=== PATIENT | male | born 1975 | race Caucasian/White ===

== ENCOUNTER 2019-10-13 11:24 | Emergency (ER) | payer BC, SELFPAY ==
--- NOTE | ~2019-10-13 | XR_ITS ---
EXAMINATION: XR wrist LT min 3V DATE: 10/13/2019 11:41 INDICATION: Sudden onset left wrist pain TECHNIQUE: Three views of the left wrist were obtained. COMPARISON: 03/16/2019 FINDINGS: There is mild osteoarthritis at the triscaphe joint. No fracture, dislocation, or subluxati on is identified. Bone alignment is normal. There is mild soft tissue swelling overlying the metacarp als. IMPRESSION: 1. Wrist soft tissue swelling without underlying acute osseous abnormality identified. Reviewed, dictated and finalized at location A. IMPRESSION: 1. Wrist soft tissue swelling without underlying acute osseous abnormality iden tified.
--- NOTE | 2019-10-13 11:33 | ED.EXTPRO ---
HPI - Extremity Problem General Chief complaint: Extremity Problem,Nontraumatic Stated complaint: left wrist injury Time Seen by Provider: 10/13/19 11:33 Source: patient Mode of arrival: ambulatory Limitations: no limitations History of Present Illness HPI Narrative: patient presents with let wrist pain that radiates to the base of his left thumb. Patient states he had an injury at work 7 months ago and had a negative xray of his thumb/wrist. patient reports increased pain and swelling while he was mowing the grass yesterday. patient reports a history of gout. no open areas, no numbness or tingling. some swelling and tenderness to area.PATIENT REPORTS CHRONIC PAIN TO THE AREA, BUT NEVER THIS BAD. RATES PAIN 11/30 PATIENT STATES HE TOOK IBUPROFEN 600 MG THIS AM BUT WAS NAUSEATED AND HAD EMESIS WITH PILL INTACT IN EMESIS. PATIENT REQUESTS SHOT FOR PAIN AND DISCOMFORT. MD Complaint: extremity pain and extremity swelling Location: left and upper extremity Severity scale (1-10): 3 Quality: aching Radiation: none Relieving factors: immobilization Associated symptoms: denies other symptoms Related Data Allergies Allergy/AdvReac Type Severity Reaction Status Date / Time No Known Allergies Allergy Verified 10/13/19 11:30 Review of Systems Review of Systems: Narrative: CONSTITUTIONAL: Denies fever, chills, or sweats. EYES: Denies visual changes, redness, or discharge. ENT: Denies rhinorrhea, congestion, sore throat, or otalgia. CARDIOVASCULAR: Denies chest pain, palpitations, or edema. RESPIRATORY: Denies cough or dyspnea. GASTROINTESTINAL: Denies abdominal pain, nausea, vomiting, or diarrhea. GENITOURINARY: Denies dysuria or hematuria. SKIN: Denies rash or itching. MUSCULOSKELETAL: Denies back pain, joint pain, or myalgia.left wrist pain NEUROLOGIC: Denies headache, numbness, or weakness. PSYCHIATRIC: Denies anxiety or depression. PMFSH Social History Social History Gender identity (if verbalized by the patient): Male Comments At time of signature, agree with nursing past medical, surgical, social and family history. There is no relevant family history pertinent to the presenting complaint Exam Narrative: Exam Narrative: GENERAL: Well-appearing, well-nourished, and in no acute distress. HEAD: Normocephalic, atraumatic. EYES: PERRLA and EOMI. ENT: Nares clear, no rhinorrhea or epistaxis. Mucous membranes moist. NECK: Supple. CHEST: Clear to auscultation. No respiratory distress. HEART: Regular rate and rhythm. No murmur heard. Normal peripheral pulses. ABDOMEN: Soft, nontender, nondistended, normal active bowel sounds. EXTREMITIES: Normal range of motion. No edema.HAND EXAM - Skin intact, no laceration, slight swelling, no erythema, normal digit cascade with flexion of fingers, median nerve, ulnar nerve, radial nerve is intact. Normal sensation of each side of each finger, can perform `ok? sign, `cross over finger test of index and middle fingers? and `thumbs up? sign, normal thumb opposition, no scissoring. good capillary refill and radial pulse. normal flexion and extension of fingers and wrist. normal supination at wrist. Normal forearm and elbow exam. pain to lateral side of wrist with movement SKIN: Warm, dry, no rash. NEURO: No focal deficits. Alert and oriented x3. [place] Coma Scale Eye Opening: Spontaneous 4 [place] Coma Scale Motor: Obeys Commands 6 Shawna Coma Scale Verbal: Oriented 5 [place] Coma Scale Total 15 Course Vital Signs Vital signs: Vital Signs Temperature 37.5 C 10/13/19 11:45 Pulse Rate 81 10/13/19 11:45 Respiratory Rate 10/13/19 11:45 Blood Pressure 147/99 H 10/13/19 11:45 Pulse Oximetry 97 10/13/19 11:45 Temperature 37.5 C 10/13/19 11:45 Pulse Rate 81 10/13/19 11:45 Respiratory Rate 20 10/13/19 11:45 Blood Pressure 147/99 H 10/13/19 11:45 Pulse Oximetry 97 10/13/19 11:45 Please JAMEE schedule a f
[2019-10-13 11:45] VITALS: BP 147/99; PULSE 81; RESP 20; TEMP 37.5; O2SAT 97
[2019-10-13] MEDS: KETOROLAC (*BKC) 60 MG/2 ML VIAL IM (12:02)
== END 2019-10-13 12:26 | disposition home or self-care (01) ==
PROVIDERS: Emergency Provider Nurse Practitioner Family; PCP Family Medicine Sports Medicine
DX: M19.032 Primary osteoarthritis, left wrist (principal); M10.9 Gout, unspecified
CPT/HCPCS: 73110; 96372; 99213; G0463; J1885

== ENCOUNTER 2022-01-07 11:05 | Emergency (ER) | payer OTHER, SELFPAY ==
--- NOTE | ~2022-01-07 | XR_ITS ---
EXAMINATION: XR wrist RT min 3V DATE: 01/07/2022 11:31 INDICATION: Right thumb and wrist pain. Fall. TECHNIQUE: 3 views of right wrist were obtained. COMPARISON: None. FINDINGS: Bone alignment is normal. No acute fracture. There is old healed fracture of neck of fifth metacarpal. There is mild osteoarthritis of triscaphe joint and first carpometacarpal joint. IMPRESSION: 1. Mild polyarticular osteoarthritis. Reviewed, dictated and finalized at location A. [employer] WORK MANAGER
--- NOTE | ~2022-01-07 | XR_ITS ---
EXAMINATION: XR finger 1st RT min 2V DATE: 01/07/2022 11:31 INDICATION: Right thumb pain. Fall. TECHNIQUE: 3 views of right thumb were obtained. COMPARISON: None. FINDINGS: There is an oblique intra-articular fracture of dorsal base of first distal phalanx. The di stal fracture fragment demonstrates 9 degrees palmar angulation. There is mild osteoarthritis of firs t carpometacarpal joint. IMPRESSION: 1. Oblique intra-articular fracture of base of first distal phalanx. Reviewed, dictated and finalized at location A. [employer] ASSISTANT
[2022-01-07 11:18] VITALS: BP 152/101; PULSE 99; RESP 18; TEMP 36.6; O2SAT 99
--- NOTE | 2022-01-07 11:34 | ED.UPPEXIN ---
HPI - Extremity Injury (Upper) General Chief Complaint: Extremity Injury, Upper Stated Complaint: Rt Wrist and Thumb Pain Time Seen by Provider: 01/07/22 11:34 Source: patient Mode of arrival: ambulatory Limitations: no limitations History of Present Illness HPI narrative: 46-year-old male presents with complaint of right thumb and right wrist pain for 4 days. Reports that he tripped at home and fell forward sliding across the carpet, states that right hand jammed into bottom of couch. Swelling and decreased range of motion noted. Distal neurovascularly intact. No deformity noted. Patient is right-hand dominant. All systems reviewed and negative except as noted above. Related Data Home Medications Medication Instructions Recorded Confirmed carvedilol 12.5 mg tablet 12.5 mg PO DAILY 01/07/22 01/07/22 zolpidem 10 mg tablet 10 mg HS 01/07/22 01/07/22 Allergies Allergy/AdvReac Type Severity Reaction Status Date / Time No Known Allergies Allergy Verified 01/07/22 11:23 Review of Systems Review of Systems: CONSTITUTIONAL: Denies fever, chills, or sweats. EYES: Denies visual changes, redness, or discharge. ENT: Denies rhinorrhea, congestion, sore throat, or otalgia. CARDIOVASCULAR: Denies chest pain, palpitations, or edema. RESPIRATORY: Denies cough or dyspnea. GASTROINTESTINAL: Denies abdominal pain, nausea, vomiting, or diarrhea. GENITOURINARY: Denies dysuria or hematuria. SKIN: Denies rash or itching. MUSCULOSKELETAL: Reports right wrist and thumb pain. NEUROLOGIC: Denies headache, numbness, or weakness. PSYCHIATRIC: Denies anxiety or depression. All other systems reviewed are negative, except as documented in HPI. PMFSH Social History Social History Gender identity (if verbalized by the patient): Male Comments At time of signature, agree with nursing past medical, surgical, social and family history. There is no relevant family history pertinent to the presenting complaint. Exam Narrative: GENERAL: This is a well-nourished, well-developed patient, in no apparent distress. HEAD: normocephalic, atraumatic. EYES: PERRL. Sclera clear/white. Vision is grossly intact. EARS: External ears normal NOSE: External nose normal NECK: Neck supple, non-tender without lymphadenopathy, masses or thyromegaly. CARDIOVASCULAR: Regular rate and rhythm without murmurs, gallops, or rubs. RESPIRATORY: Clear to auscultation. Breath sounds equal bilaterally. No wheezes, rales, or rhonchi. SKIN: warm, Dry, intact with no suspicious lesions or rash, good texture and turgor. NEURO: awake, alert, and oriented to person, place and time. There were no obvious focal neurologic abnormalities. EXTREMITIES: Tenderness, swelling and contusion to distal aspect right thumb. No deformity. No injury to nail. Generalized tenderness to right wrist with swelling. Decreased range of motion due to pain. Course Course Level of Care: Express Care Visit Vital Signs Vital signs: Vital Signs Temperature 36.6 C 01/07/22 11:18 Pulse Rate 99 01/07/22 11:18 Respiratory Rate 18 01/07/22 11:18 Blood Pressure 152/101 H 01/07/22 11:18 Pulse Oximetry 99 01/07/22 11:18 Oxygen Delivery Room Air 01/07/22 11:18 Temperature 36.6 C 01/07/22 11:18 Pulse Rate 99 01/07/22 11:18 Respiratory Rate 18 01/07/22 11:18 Blood Pressure 152/101 H 01/07/22 11:18 Pulse Oximetry 99 01/07/22 11:18 Oxygen Delivery Room Air 01/07/22 11:18 Reviewed MDM - Extremity Injury (Upper) MDM Narrative Medical decision making narrative: discussed x-ray results with patient. Patient placed in Hernandez wrap, finger splint to right thumb by RN. Distal neurovascularly intact after application. Given sling to elevate due to swelling. Referred to Dr. Still for follow-up. Patient is aware of diagnosis, understands and agrees to treatment plan. Anticipatory guidance giv
== END 2022-01-07 12:15 | disposition home or self-care (01) ==
PROVIDERS: Emergency Provider Nurse Practitioner Family; PCP Family Medicine Sports Medicine
DX: S62.521A Displaced fracture of distal phalanx of right thumb, initial encounter for closed fracture (principal); W01.190A Fall on same level from slipping, tripping and stumbling with subsequent striking against furniture, initial encounter; S63.501A Unspecified sprain of right wrist, initial encounter; I10 Essential (primary) hypertension; M19.90 Unspecified osteoarthritis, unspecified site; M10.9 Gout, unspecified
CPT/HCPCS: 29130; 73110; 73140; 99214; A4565; G0463

== ENCOUNTER 2022-02-23 17:45 | Emergency (ER) | payer OTHER, SELFPAY ==
[2022-02-23 18:27] VITALS: BP 135/92; PULSE 122; RESP 18; TEMP 36.4; O2SAT 100
--- NOTE | 2022-02-23 18:49 | ED.EXTPRO ---
HPI - Extremity Problem General Chief complaint: Extremity Problem,Nontraumatic Stated complaint: lt knee pain Time Seen by Provider: 02/23/22 18:49 Source: patient Mode of arrival: ambulatory Limitations: no limitations History of Present Illness HPI Narrative: 46-year-old male presents with complaint of left knee pain for 2-3 days. Reports history of gout. Last time he had gout was to his right knee. Call PCP today and is not in the office. Taking ibuprofen and-Tylenol with no relief. Reports pain is to touch and worse with ambulatory. Denies injury. I just woke up this way go . All systems reviewed and negative except as noted above. Related Data Home Medications Medication Instructions Recorded Confirmed carvedilol 12.5 mg tablet 12.5 mg PO DAILY 01/07/22 02/23/22 zolpidem 10 mg tablet 10 mg HS 01/07/22 02/23/22 allopurinol 300 mg tablet 300 mg PO DAILY 02/23/22 02/23/22 indomethacin 25 mg capsule 50 mg PO BID 02/23/22 02/23/22 Allergies Allergy/AdvReac Type Severity Reaction Status Date / Time No Known Allergies Allergy Verified 02/23/22 18:43 Review of Systems Review of Systems: CONSTITUTIONAL: Denies fever, chills, or sweats. EYES: Denies visual changes, redness, or discharge. ENT: Denies rhinorrhea, congestion, sore throat, or otalgia. CARDIOVASCULAR: Denies chest pain, palpitations, or edema. RESPIRATORY: Denies cough or dyspnea. GASTROINTESTINAL: Denies abdominal pain, nausea, vomiting, or diarrhea. GENITOURINARY: Denies dysuria or hematuria. SKIN: Denies rash or itching. MUSCULOSKELETAL: Reports left knee pain and swelling, history of gout NEUROLOGIC: Denies headache, numbness, or weakness. PSYCHIATRIC: Denies anxiety or depression. All other systems reviewed are negative, except as documented in HPI. PMFSH Social History Social History Gender identity (if verbalized by the patient): Male Comments At time of signature, agree with nursing past medical, surgical, social and family history. There is no relevant family history pertinent to the presenting complaint. Exam Narrative: GENERAL: This is a well-nourished, well-developed patient, in no apparent distress. HEAD: normocephalic, atraumatic. EYES: PERRL. Sclera clear/white. Vision is grossly intact. EARS: External ears normal NOSE: External nose normal NECK: Neck supple, non-tender without lymphadenopathy, masses or thyromegaly. CARDIOVASCULAR: Regular rate and rhythm without murmurs, gallops, or rubs. RESPIRATORY: Clear to auscultation. Breath sounds equal bilaterally. No wheezes, rales, or rhonchi. SKIN: warm, Dry, intact with no suspicious lesions or rash, good texture and turgor. NEURO: awake, alert, and oriented to person, place and time. There were no obvious focal neurologic abnormalities. EXTREMITIES: tenderness to anterior aspect left knee with swelling. No erythema or warmth. Course Course Level of Care: Express Care Visit Vital Signs Vital signs: Vital Signs Temperature 36.4 C 02/23/22 18:27 Pulse Rate 122 H 02/23/22 18:27 Respiratory Rate 18 02/23/22 18:27 Blood Pressure 135/92 H 02/23/22 18:27 Pulse Oximetry 100 02/23/22 18:27 Oxygen Delivery Room Air 02/23/22 18:27 Temperature 36.4 C 02/23/22 18:27 Pulse Rate 122 H 02/23/22 18:27 Respiratory Rate 18 02/23/22 18:27 Blood Pressure 135/92 H 02/23/22 18:27 Pulse Oximetry 100 02/23/22 18:27 Oxygen Delivery Room Air 02/23/22 18:27 Reviewed MDM - Extremity (Nontraumatic) MDM Narrative Medical decision making narrative: Patient is aware of diagnosis, understands and agrees to treatment plan. Anticipatory guidance given. Patient agrees to follow-up as directed and is aware of reasons to seek care at the emergency department. Portions of this record may have been created with voice recognition software will treat patient for gout due to history and
== END 2022-02-23 19:01 | disposition home or self-care (01) ==
PROVIDERS: Emergency Provider Nurse Practitioner Family; PCP Family Medicine Sports Medicine
DX: M10.9 Gout, unspecified (principal); I10 Essential (primary) hypertension; M19.90 Unspecified osteoarthritis, unspecified site
CPT/HCPCS: 99213; G0463

== ENCOUNTER 2024-04-13 12:24 | Emergency (ER) | payer OTHER, SELFPAY ==
--- NOTE | ~2024-04-13 | XR_ITS ---
XR ankle LT min 3V 04/13/2024 12:54 Indication: Lateral ankle swelling Procedure: 4 views left ankle Comparison: 10/20/2014 Findings: There is an avulsion fracture distal tip of the fibula. No significant soft tissue abnormal ity. Ankle mortise otherwise intact. Talar dome is unremarkable. There is mild polyarticular osteoart hritis of the hind and midfoot. Impression: 1: Age-indeterminate avulsion fracture distal tip of the fibula. Correlate for point tenderness. Reviewed, dictated and finalized at location L. RIALS INSPECTOR Impression: 1: Age-indeterminate avulsion fracture distal tip of the fibula. Correlate for point tenderness.
--- OUTSIDE RECORDS SUMMARY | 2024-04-13 12:29 | XMS_ITS | Clinical Summary ---
Author Organization [facility] Address [address] [place] [address] Care Team Providers Care Mill Controller Name Role Phone Jatinder Garcia MD Primary Care Provider [phone] Allergies No known active allergies Medications ibuprofen (MOTRIN) 600 MG tabletIndications :Idiopathic chronic gout of multiple sites with tophus Take 1 tablet (600 mg total) by mouth every 6 (six) hours as needed. 60 tablet 4 Active losartan (COZAAR) 25 MG tabletIndications :Primary hypertension Take 1 tablet (25 mg total) by mouth daily. 90 tablet 1 4 Active tamsulosin (FLOMAX) 0.4 MG CapIndications:BP H (benign prostatic hyperplasia) Take 1 capsule (0.4 mg total) by mouth daily. 90 capsule 4 Active zolpidem (AMBIEN) 10 MG tabletIndications :Insomnia, unspecified type Take 1 tablet (10 mg total) by mouth nightly as needed for Sleep. 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 Has been dealing with swelling for well over a year now. Wants to have this surgically removed. We will schedule for 02/12/2021 Gouty tophus 02/05/2021 Overview (03/18/2021): 02/12/2021 excision of olecranon bursa left Assessment & Plan (03/18/2021 8:46 PM DRUG SAFETY DATA MANAGEMENT SPECIALIST): Gouty tophus to the right elbow not nearly as large as it was on the left. The left incision is well-healed. We discussed vitamin E oil, cocoa butter, scar cream to massage into the scar tissue. Increase activities as tolerated. Follow-up as needed. Assessment & Plan (02/05/2021 3:44 PM DRUG SAFETY DATA MANAGEMENT SPECIALIST): Bilateral elbows. No erythema or induration. Will elliptically excise the gouty tophus on the left when we excised the olecranon bursa Effusion of right knee joint 03/07/2018 Old complex tear of lateral meniscus of right kn ee 03/07/2018 Knee instability, right 11/24/2017 Tear of PCL (posterior cruciate ligament) of kne e 11/24/2017 Patellofemoral arthritis 07/26/2017 Plica of knee, right 07/26/2017 Right knee pain 06/30/2017 Insomnia 05/03/2017 Acute idiopathic gout of right knee 04/05/2017 Left ankle pain 04/05/2017 Resolved Problems Problem Noted Date Diagnosed Date Resolved Date Encounter for preventive health examination 10/01/2016 11/02/2019 Encounters Date Type Department Care Team Description 03/20/2024 3:00 PM DRUG SAFETY DATA MANAGEMENT SPECIALIST Office Visit [facility] Family & Internal Medicine [address] [address] Jatinder Garcia MD Follow Up; Hypertension; Numbness (Right leg numbness) 03/20/2024 Travel 01/17/2024 12:59 PM DRUG SAFETY DATA MANAGEMENT SPECIALIST - 01/17/2024 11:59 PM DRUG SAFETY DATA MANAGEMENT SPECIALIST Hospital Encounter [facility] [address] [place] [address] Jatinder Garcia MD Discharge Disposition: Home or Self Care (Routine Discharge) 01/17/2024 Travel 01/12/2024 4:00 PM DRUG SAFETY DATA MANAGEMENT SPECIALIST Office Visit [facility] Family & Internal Medicine [address] [address] Jatinder Garcia MD Follow Up (BP, pt states numbness is right leg and foot started a few weeks ago ) 01/12/2024 Travel from Last 3 Months Immunizations Name Administration Dates Next Due COVID-19 Vaccine (Generic) 09/03/2021(Deferred: Patient Refused) Fluzone Adult - >Age 3 (Pref illed Syringe) 01/29/2020(Deferred: Patient Refused) MMR 09/28/2018 MMR (MMRII) 09/28/2018 Tdap (Historical Only-select from magnify glass) 06/08/2018 Family History Medical History Relation Comments Diabetes Father Hypertension Father Diabetes Mother Hypertension Mother Prostate Cancer Paternal Uncle Relation Status Comments Father Alive Mother Alive Paternal Uncle Social History Tobacco Use Types Packs/Day Years Used Date Smoking Tobacco: Never Smokeless Tobacco: Never Tobacco Cessation:Counseling Given: No Alcohol Use Standard Drinks/Week Comments Yes 40 (1 standard drink = 0.6 oz pu re alcohol) 2-3 beers per night PHQ-2 Answer Date Recorded Patient Health Questionnaire-2 Score 1 07/12/2023 Sex and Gender Information Value Date Recorded Sex Assigned at Not on file Legal Sex Male 4:13 PM CDT Gender Identity Not on file Sexual Orientation Not on file Last Filed Vital Signs Vital Sign Reading Time Taken Comments Blood Pressure 129/79 03/20/2024 3:00 PM DRUG SAFETY DATA MANAGEMENT SPECIALIST Pulse 83 03/20/2024 3:00 PM DRUG SAFETY DATA MANAGEMENT SPECIALIST Temperature 36.8 C (98.3 F) 03/20/2024 3:00 PM DRUG SAFETY DATA MANAGEMENT SPECIALIST Respiratory Rate 16 03/20/2024 3:00 PM DRUG SAFETY DATA MANAGEMENT SPECIALIST Oxygen Saturation 99% 03/20/2024 3:00 PM DRUG SAFETY DATA MANAGEMENT SPECIALIST Inhaled Oxygen Concentration - - Weight 73 kg (161 lb) 03/20/2024 3:00 PM DRUG SAFETY DATA MANAGEMENT SPECIALIST Height 180.3 cm (5' 11 ) 03/20/2024 3:00 PM DRUG SAFETY DATA MANAGEMENT SPECIALIST Body Mass Index 22.45 03/20/2024 3:00 PM DRUG SAFETY DATA MANAGEMENT SPECIALIST Plan of Treatment Upcoming Encounters Date Type Department Care Team (Late st Contact Info) Description 07/17/2024 1:40 PM CDT Office Visit [facility] Family & Internal Medicine [address] [address] Jatinder Garcia MD [address] [place], [place] [id number] 09/25/2024 3:00 PM CDT Office Visit [facility] Family & Internal Medicine [facility] [address] [place] [address] Jatinder Garcia MD [address] [place], [place] [id number] Health Maintenance Due Date Last Done Comments Annual Physical 1976 Hepatitis C 04/28/1991 Hepatitis B Vaccines (1 of 3 - 19+ 3-dose series) 1992 Zoster Vaccines (1 of 2) 04/28/2023 COVID-19 Vaccine (1 - 2023-2 5 season) 2023 Influenza Adult (#1) 2023 PHQ-2 (Physician [place]) 02/22/2024 07/12/2023 Colorectal Cancer Screening FIT-DNA (3 Years) 01/21/2027 01/22/2024, 01/22/2024 DTaP, Tdap and Td Vaccines ( 2 - Td or Tdap) 06/08/2028 06/08/2018 Meningococcal B Vaccine Aged Out No l onger eligible based on patient's age to complete this topic Meningococcal Vaccine Aged Out No enoc adolfo eligible based on patient's age to complete this topic Pneumococcal Vaccine: Pediatrics (0 to 5 Years) and At-Risk Patients (6 to 64 Years) Aged Out No longer eligible b ased on patient's age to complete this topic RSV Immunizations Under 20 Months Aged Out No longer eligible b ased on patient's age to complete this topic Medical Devices Implanted Type Area Pharmacology Teacher Device Identifier Shelf Expiration Date Model / Serial / Lot Pin Pin Right: Toe Procedures Procedure Name Priority Date/Time Associated Diagnosis Comments COLOGANNARD (EXACT SCIENCE) Routine 01/22/2024 6:20 PM DRUG SAFETY DATA MANAGEMENT SPECIALIST Screening for malignant neoplasm of colon HC URINALYSIS AUTO W/O MICRO Routine 01/17/2024 1:31 PM DRUG SAFETY DATA MANAGEMENT SPECIALIST Primary hypertension PROSTATE SPECIFIC ANTIGEN,SCREENING Routine 01/17/2024 1:21 PM DRUG SAFETY DATA MANAGEMENT SPECIALIST Screening for malignant neoplasm of prostate URIC ACID BLOOD Routine 01/17/2024 1:21 PM DRUG SAFETY DATA MANAGEMENT SPECIALIST Idiopathic chronic gout of multiple sites with tophus LIPID PANEL Routine 01/17/2024 1:21 PM DRUG SAFETY DATA MANAGEMENT SPECIALIST Primary hypertension COMPREHENSIVE METABOLIC PANEL Routine 01/17/2024 1:21 PM DRUG SAFETY DATA MANAGEMENT SPECIALIST Primary hypertension from Last 3 Months Results * COLOGUARD (EXACT SCIENCE) (01/22/2024 6:20 PM DRUG SAFETY DATA MANAGEMENT SPECIALIST) COLOGUARD RESULT Negative Negative [facility] (CLIA #:[id number]) Comment: NEGATIVE TEST RESULT. A negative Cologuard result indicates a low likelihood that a colorectal cancer (CRC) or advanced adenoma (adenomatous polyps with more advanced pre-malignant features) is present. The chance that a person with a negative Cologuard test has a colorectal cancer is less than 1 in 1500 (negative predictive value >99.9%) or has an advanced adenoma is less than 5.3% (negative predictive value 94.7%). These data are based on a prospective cross-sectional study of 10,000 individuals at average risk for colorectal cancer who were screened with both Cologuard and colonoscopy. (Yair Bruner et al, N Engl J Med 2014;370(14):4203-5324) The normal value (reference range) for this assay is negative. COLOGUARD RE-SCREENING RECOMMENDATION: Periodic colorectal cancer screening is an important part of preventive healthcare for asymptomatic individuals at average risk for colorectal cancer. Following a negative Cologuard result, the [place] [employer] Society and U.S. Multi-Society Task Force screening guidelines recommend a Cologuard re-screening interval of 3 years. References: [place] [employer] Guideline for Colorectal Cancer Screening: https://www.cancer.org/cancer/rxast-mttddo-fvttvy/ogegasuis-ostxzyhgb-uwxummq/ac s-rec ommendations.html.; [place], Jonatan ROBLES, Rahul RAM, Colorectal Cancer Screening: Recommendations for Physicians and Patients from the U.S. Multi-Society Task Force on Colorectal Cancer Screening , Am J Gastroenterology 2017; 112:6661-2282. TEST DESCRIPTION: Composite algorithmic analysis of stool DNA-biomarkers with hemoglobin immunoassay. Quantitative values of individual biomarkers are not reportable and are not associated with individual biomarker result reference ranges. Cologuard is intended for colorectal cancer screening of adults of either sex, 45 years or older, who are at average-risk for colorectal cancer (CRC). Cologuard has been approved for use by the U.S. FDA. The performance of Cologuard was established in a cross sectional study of average-risk adults aged 50-84. Cologuard performance in patients ages 45 to 49 years was estimated by sub-group analysis of near-age groups. Colonoscopies performed for a positive result may find as the most clinically significant lesion: colorectal cancer [4.0%], advanced adenoma (including sessile serrated polyps greater than or equal to 1cm diameter) [20%] or non- advanced adenoma [31%]; or no colorectal neoplasia [45%]. These estimates are derived from a prospective cross-sectional screening study of 10,000 individuals at average risk for colorectal cancer who were screened with both Cologuard and colonoscopy. (Yair Bruner et al, N Engl J Med 2014;370(14):8661-4412.) Cologuard may produce a false negative or false positive result (no colorectal cancer or precancerous polyp present at colonoscopy follow up). A negative Cologuard test result does not guarantee the absence of CRC or advanced adenoma (pre-cancer). The current Cologuard screening interval is every 3 years. ([place] [employer] and U.S. Multi-Society Task Force). Cologuard performance data in a 10,000 patient pivotal study using colonoscopy as the reference method can be accessed at the following location: www.[employer] [place]/results. Additional description of the Cologuard test process, warnings and precautions can be found at www.cologuard.com. STOOL STOOL SPECIMEN / Unknown 01/22/2024 6:20 PM DRUG SAFETY DATA MANAGEMENT SPECIALIST 01/25/2024 9:58 AM DRUG SAFETY DATA MANAGEMENT SPECIALIST Jatinder Garcia MD BODY FLUIDS AND STOOLS SUAD LEON Final Result [employer] ([facility]) [address] [place] [address], [employer] (CLIA #:[id number]) [address] [place] [address] * URINALYSIS (01/17/2024 1:31 PM DRUG SAFETY DATA MANAGEMENT SPECIALIST) COLOR (U) YELLOW 01/17/2024 2:00 PM [facility] TRANSPARENCY CLEAR 01/17/2024 2:00 PM [facility] SPECIFIC GRAVITY (U) 1.010 1.000 - 1.030 01/17/2024 2:00 PM [facility] U PH 7.5 5.0 - 9.0 01/17/2024 2:00 PM [facility] LEUKOCYTES (U) NEGATIVE NEGATIVE 01/17/2024 2:00 PM [facility] NITRITES NEGATIVE NEGATIVE 01/17/2024 2:00 PM [facility] PROTEIN RANDOM (U) NEGATIVE NEGATIVE 01/17/2024 2:00 PM [facility] GLUCOSE (U) NEGATIVE NEGATIVE 01/17/2024 2:00 PM [facility] KETONES MG/DL (U) NEGATIVE NEGATIVE 01/17/2024 2:00 PM [facility] BILIRUBIN (U) NEGATIVE NEGATIVE 01/17/2024 2:00 PM [facility] BLOOD (U) NEGATIVE NEGATIVE 01/17/2024 2:00 PM [facility] URINE SPECIMEN OBTAINED BY CLEAN CATCH PROCEDURE / Unknown 01/17/2024 1:31 PM DRUG SAFETY DATA MANAGEMENT SPECIALIST Jatinder Garcia MD URINE ORDERABLES Final Resu lt Performing Organization Address City/[facility]/ZIP Co de Phone Number [facility] [address] [place] [address], [place] [phone] * PROSTATE SPECIFIC ANTIGEN,SCREENING (01/17/2024 1:21 PM DRUG SAFETY DATA MANAGEMENT SPECIALIST) PSA 0.51 <4.00 NG/ML 01/17/2024 2:04 PM DRUG SAFETY DATA MANAGEMENT SPECIALIST [facility] Comment: Test was performed using the Siemens method. Results obtained with other assay methods or kits cannot be used interchangeably with results obtained by the Siemens method. 01/17/2024 1:21 PM DRUG SAFETY DATA MANAGEMENT SPECIALIST Jatinder Garcia MD LABORATORY Final Resul t Performing Organization Address [facility] Co de Phone Number [facility] [address] [place] [address], [place] [phone] * (ABNORMAL) COMPREHENSIVE METABOLIC PANEL (01/17/2024 1:21 PM DRUG SAFETY DATA MANAGEMENT SPECIALIST) GLUCOSE 104(H) 70 - 99 MG/DL 01/17/2024 1:54 PM [facility] BUN 10 7 - 18 MG/DL 01/17/2024 1:54 PM [facility] CREATININE S/P/B 1.01 0.7 - 1.3 MG/DL 01/17/2024 1:54 PM [facility] SODIUM S/P/B 140 136 - 145 MMOL/L 01/17/2024 1:54 PM [facility] POTASSIUM S/P/B 4.9 3.5 - 5.1 MMOL/L 01/17/2024 1:54 PM [facility] CHLORIDE S/P/B 103 100 - 108 MMOL/L 01/17/2024 1:54 PM [facility] CO2 29.9 21 - 32 MMOL/L 01/17/2024 1:54 PM [facility] CALCIUM S/P/B 8.8 8.5 - 10.1 MG/DL 01/17/2024 1:54 PM [facility] BILIRUBIN TOTAL S/P/B 0.5 0.2 - 1.2 MG/DL 01/17/2024 1:54 PM [facility] TOTAL PROTEIN S/P/B 7.4 6.4 - 8.2 G/DL 01/17/2024 1:54 PM [facility] ALBUMIN S/P/B 3.7 3.4 - 5.0 G/DL 01/17/2024 1:54 PM [facility] AST 40(H) 15 - 37 U/L 01/17/2024 1:54 PM [facility] ALT 27 16 - 60 U/L 01/17/2024 1:54 PM [facility] ALKALINE PHOSPHATASE S/P/B 95 50 - 136 U/L 01/17/2024 1:54 PM [facility] ANION GAP 7.1 5 - 15 MMOL/L 01/17/2024 1:54 PM [facility] BUN CREATININE RATIO 9.9 6 - 26 01/17/2024 1:54 PM [facility] A/G RATIO 1.0 1.0 - 2.0 RATIO 01/17/2024 1:54 PM [facility] GFR ESTIMATE >90 >90 ML/MIN/1.7 3 M2 01/17/2024 1:54 PM [facility] Comment: NOTE: eGFR is not calculated for patients <18 years of age. This is an estimated GFR calculation using the new CKD EPI creatinine equation without race and so does not require a correction factor for race. This estimated GFR should not be used for calculating drug doses. 01/17/2024 1:21 PM DRUG SAFETY DATA MANAGEMENT SPECIALIST Jatinder Garcia MD LABORATORY Final Resul t [facility] [address] [place] [address], * LIPID PANEL (01/17/2024 1:21 PM DRUG SAFETY DATA MANAGEMENT SPECIALIST) CHOLESTEROL 174 <200.0 MG/DL 01/17/2024 1:54 PM [facility] TRIGLYCERIDES 85 <150 MG/DL 01/17/2024 1:54 PM [facility] HDL 88 >40.0 MG/DL 01/17/2024 1:54 PM [facility] LDL (CALCULATED) 69 <100 MG/DL 01/17/20 1:54 PM [facility] NON HDL CHOLESTEROL 86 <130 MG/DL 01/16 1:54 PM [facility] CHOL/HDL RATIO 2.0 0.0 - 4.5 01/17/2024 1:54 PM [facility] VLDL CALCULATION 17 5 - 55 MG/DL 01/17/2024 1:54 PM [facility] LIPID INTERPRETATION 01/17/2024 1:54 PM [facility] Comment: NIH CONCENSUS REPORT RECOMMENDATIONS: ADULT CHILD LOW RISK: CHOLESTEROL <200 <170 TRIGLYCERIDE <150 --- HDL >=60 --- LDL <100 <110 BORDERLINE: CHOLESTEROL 200-239 170-199 TRIGLYCERIDE 150-199 --- HDL 40-59 --- LDL 100-159 110-129 HIGH RISK: CHOLESTEROL >=240 >=200 TRIGLYCERIDE >=200 --- HDL <40 --- LDL >=160 >=130 01/17/2024 1:21 PM DRUG SAFETY DATA MANAGEMENT SPECIALIST Jatinder Garcia MD LABORATORY Final Resul t Performing Organization Address City/[facility]/ZIP Co de Phone Number [facility] [address] [place] [address], [place] [phone] * (ABNORMAL) URIC ACID BLOOD (01/17/2024 1:21 PM DRUG SAFETY DATA MANAGEMENT SPECIALIST) URIC ACID 7.8(H) 3.5 - 7.2 MG/DL 01/17/2024 1:54 PM DRUG SAFETY DATA MANAGEMENT SPECIALIST [facility] 01/17/2024 1:21 PM DRUG SAFETY DATA MANAGEMENT SPECIALIST Jatinder Garcia MD LABORATORY Final Resul t Performing Organization Address City/[facility]/ZIP Co de Phone Number [facility] [address] [place] [address], [place] [phone] from Last 3 Months Insurance [employer] Advance Directives Documents on File Type Date Recorded Patient Automatic Vulcanizing Operator Expl anation Legal Documents 02/26/2020 3:21 PM RECVD/CO MPLETED ATTY REQUEST FOR DAVID [employer] DOS 1.24.20 - PRESENT Care Teams Mill Controller Relationship Specialty [place] [address] [place] [address] PCP - General FAMILY PRACTICE 02/27/18
--- OUTSIDE RECORDS SUMMARY | 2024-04-13 12:29 | XMS_ITS | Continuity of Care Document ---
Author Organization [facility] Address [address] [place] [address] Phone Care Team Providers Care Service Developer Name Role Phone Unavailable Unavailable Unavailable Procedures Procedure Date Postop followup visit Office/outpatient visit,[facility] 2007 Clsd trtmnt mtcrpl Fx sng w/o manip Advance Directives Directive Yes / No Effective Date File Name No Information Encounters Encounter Description Practice Location Reason(s) For Visit Diagnoses Date Provider Providers Copied on Encounter [facility] [address] [place], [place], [id number], [place] tel:[phone] [facility] Outpatient No Information 8 No Information Office/outpat ient visit,[facility] [address] [facility] [address], [place], [place], [id number], [place] tel:[phone] [facility] Outpatient No Information 8 No Information Family History Family Member Type Diagnosis Age At Onset No Information Payers Payer name Insurance type Covered libertarian ID Authoriza tion(s) Sheree Blue Cross Blue Shiel d [place] BL [id number] Social History Type Description Quantity Date Captured Comments Sex Male Smoking Status No Information Chief Complaint And Reason For Visit No Information Reason For Referral Reason For Referral No Information History Of Present Illness Encounter Date Complaint History Of Prese nt Illness No Information Functional Status Date Functional Assessmen t No Information Instructions Date Instruction Additional Infor mation No Information Assessments Type Assessment Date No Information Patient Care Teams Name Effective Dates (start - stop) Status Members No Information
--- OUTSIDE RECORDS SUMMARY | 2024-04-13 12:29 | XMS_ITS | Encounter Summary ---
Author Organization [facility] Address [address] [place] [address] Care Team Providers Care Incident Response Consultant Name Role Phone Jatinder Garcia MD Primary Care Provider [phone] Encounter Details Date Type Department Care Team (Late st Contact Info) Description 03/23/2017 Abstract [facility] CONVERSION [address] [place] [address] , Generic ConversionMD Social History Tobacco Use Types Packs/Day Years Used Date Smoking Tobacco: Never Assessed Sex and Gender Information Value Date Recorded Sex Assigned at Not on file Legal Sex Male 4:13 PM CDT Gender Identity Not on file Sexual Orientation Not on file documented as of this encounter Plan of Treatment Upcoming Encounters Date Type Department Care Team (Late st Contact Info) Description 07/17/2024 1:40 PM CDT Office Visit [facility] Family & Internal Medicine [facility] [address] [place] [address] Jatinder Garcia MD [address] [place] [address] [place] [phone] 09/25/2024 3:00 PM CDT Office Visit [facility] Family & Internal [facility] [address] [place] [address] Jatinder Garcia MD [address] [place] [address] [address] [place], [place] [id number] documented as of this encounter Visit Diagnoses Not on filedocumented in this encounter Additional Health Concerns Infection Onset Date Last Indicated Resolved Time COVID-19 Rule Out 01/24/2020 01/24/2020 01/24/2020 3:53 PM STENCIL CUTTER COVID-19 Rule Out 02/09/2021 02/09/2021 02/10/2021 7:13 PM STENCIL CUTTER documented as of this encounter Care Teams Incident Response Consultant Relationship Specialty [place] [address] [place] [address] PCP - General FAMILY PRACTICE 02/27/18 documented as of this encounter
--- OUTSIDE RECORDS SUMMARY | 2024-04-13 12:29 | XMS_ITS | Encounter Summary ---
Author Organization [facility] Address [address] [place] [address] Care Team Providers Care Stockroom Coordinator Name Role Phone Jatinder Garcia MD Primary Care Provider [phone] Encounter Details Date Type Department Care Team (Late st Contact Info) Description 07/29/2018 Abstract [facility] CONVERSION [address] [place] [address] , Generic ConversionMD Social History Tobacco Use Types Packs/Day Years Used Date Smoking Tobacco: Never Smokeless Tobacco: Never Alcohol Use Standard Drinks/Week Comments Yes 0 (1 standard drink = 0.6 oz pur e alcohol) ocasional Sex and Gender Information Value Date Recorded Sex Assigned at Not on file Legal Sex Male 4:13 PM CDT Gender Identity Not on file Sexual Orientation Not on file documented as of this encounter Plan of Treatment Upcoming Encounters Date Type Department Care Team (Late st Contact Info) Description 07/17/2024 1:40 PM CDT Office Visit [facility] Family & Internal Medicine [facility] [address] [place] [address] Jatinder Garcia MD [address] [facility] [address] [place] [address] 09/25/2024 3:00 PM CDT Office Visit [facility] Family & Internal [facility] [address] [place] [address] Jatinder Garcia MD [address] [facility] [address] [place] [address] documented as of this encounter Visit Diagnoses Not on filedocumented in this encounter Additional Health Concerns Infection Onset Date Last Indicated Resolved Time COVID-19 Rule Out 01/24/2020 01/24/2020 01/24/2020 3:53 PM SUPERVISOR ENGRAVING COVID-19 Rule Out 02/09/2021 02/09/2021 02/10/2021 7:13 PM SUPERVISOR ENGRAVING documented as of this encounter Care Teams Stockroom Coordinator Relationship Specialty [place] [address] [place] [address] PCP - General FAMILY PRACTICE 02/27/18 documented as of this encounter
--- OUTSIDE RECORDS SUMMARY | 2024-04-13 12:29 | XMS_ITS | Encounter Summary ---
Author Organization [facility] Address [address] [place] [address] Care Team Providers Care Psych Tech Name Role Phone Jatinder Garcia MD Primary Care Provider [phone] Encounter Details Date Type Department Care Team (Late Contact Info) Description 02/06/2021 Prep for Procedure [facility] [address] [place] [address] [place] [address] [place] [address] Social History Tobacco Use Types Packs/Day Years Used Date Smoking Tobacco: Never Smokeless Tobacco: Never Alcohol Use Standard Drinks/Week Comments Yes 0 (1 standard drink = 0.6 oz pur e alcohol) ocasional PHQ-2 Answer Date Recorded PHQ-2 Score - If the patient scores above 3, please move on to questions 3-9 0 10/28/2020 Sex and Gender Information Value Date Recorded Sex Assigned at Not on file Legal Sex Male 4:13 PM CDT Gender Identity Not on file Sexual Orientation Not on file COVID-19 Exposure Response Date Recorded In the last month, have you been in contact with someone who was confirmed or suspected to have Coronavirus / COVID-19? No / Unsure 02/09/2021 1:25 PM CIVIL CELEBRANT documented as of this encounter Plan of Treatment Upcoming Encounters Date Type Department Care Team (Late Contact Info) Description 07/17/2024 1:40 PM CDT Office Visit [facility] Family & Internal Medicine [facility] [address] [place] [address] Jatinder Garcia MD [address] [place], [place] [address] 09/25/2024 3:00 PM CDT Office Visit [facility] Family & Internal Medicine [facility] [address] [place] [address] Jatinder Garcia MD [address] [place], [place] [address] documented as of this encounter Results * PRE-SURGICAL/PRE-PROCEDURE CORONAVIRUS (COVID 19) (02/09/2021 1:28 PM CIVIL CELEBRANT) SPECIMEN SOURCE NASAL 1:26 PM CIVIL CELEBRANT [facility] CORONAVIRUS SARS COV 2 PCR (RESP) NEGATIVE NEGATIVE 02/10/2021 7:13 PM CIVIL CELEBRANT [facility] Comment: THE SARS-CoV-2 TEST HAS BEEN AUTHORIZED BY THE FDA UNDER AN EUA FOR USE BY AUTHORIZED LABORATORIES. PERFORMED BY NUCLEIC ACID AMPLIFICATION PCR FIRST TEST NO 02/09/2021 1:26 PM CIVIL CELEBRANT [facility] EMPLOYED IN HEALTHCARE NO 02/09/2021 1:26 PM CIVIL CELEBRANT [facility] SYMPTOMATIC DEFINED BY CDC UNKNOWN 02/09/2021 1:26 PM CIVIL CELEBRANT [facility] HOSPITALIZATION STATUS NO 02/09/2021 1:26 PM CIVIL CELEBRANT [facility] PATIENT IN ICU NO 02/09/2021 1:26 PM CIVIL CELEBRANT [facility] RESIDENT OF [facility] C[facility] NO 02/09/2021 1:26 PM CIVIL CELEBRANT [facility] NASAL STRUCTURE / Unknown 02/09/2021 1:28 PM CIVIL CELEBRANT us Jackson Max DO MICROBIOLOGY - GENERAL ORDERABL ES Final Result [facility] (H) [facility] [address] [place] [address], [place] [phone] [facility] (D) [facility] [address] [place] [address], [place] [phone] documented in this encounter Visit Diagnoses Diagnosis Preop testing- Primary Preoperative examination, unspecified documented in this encounter Additional Health Concerns Infection Onset Date Last Indicated Resolved Time COVID-19 Rule Out 02/09/2021 02/09/2021 02/10/2021 7:13 PM CIVIL CELEBRANT Assessment Noted Time PHQ-9 Depression Total Score: 0 10/29/19 21 1:13 PM CDT documented as of this encounter Care Teams Psych Tech Relationship Specialty [place] [address] [place] [address] PCP - General FAMILY PRACTICE 02/27/18 documented as of this encounter
--- OUTSIDE RECORDS SUMMARY | 2024-04-13 12:32 | XMS_ITS | Continuity of Care Document ---
Author Organization [facility] Address [address] [place] [address] Phone Care Team Providers Care Packing And Stamping Machine Operator Name Role Phone Unavailable Unavailable Unavailable Procedures Procedure Date Postop followup visit Office/outpatient visit,[facility] [place] 2007 Clsd trtmnt mtcrpl Fx sng w/o manip Advance Directives Directive Yes / No Effective Date File Name No Information Encounters Encounter Description Practice Location Reason(s) For Visit Diagnoses Date Provider Providers Copied on Encounter [facility] [address] [place], [place], [id number], [place] tel:[phone] [facility] No Information 8 No Information Office/outpat ient visit,[facility] [address] [facility] [address] [place], [place], [id number], [place] tel:[phone] [facility] Outpatient No Information 8 No Information Family History Family Member Type Diagnosis Age At Onset No Information Payers Payer name Insurance type Covered republican ID Authoriza tion(s) Sheree [employer] Blue [employer] d [place] [id number] Social History Type Description Quantity Date Captured [...]
[2024-04-13 12:34] VITALS: BP 141/87; PULSE 77; RESP 18; TEMP 36.7; O2SAT 100
--- NOTE | 2024-04-20 17:43 | ED.LOWEXIN ---
HPI - Extremity Injury (Lower) General Chief Complaint: Extremity Injury, Lower Stated Complaint: lt ankle injury Time Seen by Provider: 04/13/24 12:45 Source: patient Mode of arrival: ambulatory Limitations: no limitations History of Present Illness HPI Narrative: 48 yo M presents with pain to L ankle. Yesterday ankle twisted while walking. Was able to catch himself and did not fall. Painful when ambulatory but not when at rest. States feels similar to when he had avulsion fracture 10 yrs ago. CMS intact. All systems reviewed and negative except as noted above. Related Data Home Medications ?Medication ?Instructions ?Recorded ?Confirmed ?Last Taken ?Type carvedilol 12.5 mg tablet 12.5 mg PO DAILY 01/07/22 02/23/22 Unknown History zolpidem 10 mg tablet 10 mg HS 01/07/22 02/23/22 Unknown History allopurinol 300 mg tablet 300 mg PO DAILY 02/23/22 02/23/22 Unknown History indomethacin 25 mg capsule 50 mg PO BID 02/23/22 02/23/22 Unknown History Allergies Allergy/AdvReac Type Severity Reaction Status Date / Time No Known Allergies Allergy Verified 04/13/24 12:29 Review of Systems Review of Systems: CONSTITUTIONAL: Denies fever, chills, or sweats. EYES: Denies visual changes, redness, or discharge. ENT: Denies rhinorrhea, congestion, sore throat, or otalgia. CARDIOVASCULAR: Denies chest pain, palpitations, or edema. RESPIRATORY: Denies cough or dyspnea. GASTROINTESTINAL: Denies abdominal pain, nausea, vomiting, or diarrhea. GENITOURINARY: Denies dysuria or hematuria. SKIN: Denies rash or itching. MUSCULOSKELETAL: Denies back pain, or myalgia.Pain to left ankle. NEUROLOGIC: Denies headache, numbness, or weakness. PSYCHIATRIC: Denies anxiety or depression. All other systems reviewed are negative, except as documented in HPI. PMFSH Social History Social History Gender identity (if verbalized by the patient): Male Comments At time of signature, agree with nursing past medical, surgical, social and family history. There is no relevant family history pertinent to the presenting complaint. Exam Narrative: GENERAL: This is a well-nourished, well-developed patient, in no apparent distress. HEAD: normocephalic, atraumatic. EYES: PERRL. Sclera clear/white. Vision is grossly intact. EARS: External ears normal NOSE: External nose normal NECK: Neck supple, non-tender without lymphadenopathy, masses or thyromegaly. CARDIOVASCULAR: Regular rate and rhythm without murmurs, gallops, or rubs. RESPIRATORY: Clear to auscultation. Breath sounds equal bilaterally. No wheezes, rales, or rhonchi. SKIN: warm, Dry, intact with no suspicious lesions or rash, good texture and turgor. NEURO: awake, alert, and oriented to person, place and time. There were no obvious focal neurologic abnormalities. EXTREMITIES: CMS intact to left ankle. No swelling noted. Range of motion normal. tenderness to PTFL. no bony tenderness. Course Course Level of Care: Express Care Visit Vital Signs Vital signs: Vital Signs Temperature 36.7 C 04/13/24 12:34 Pulse Rate 77 04/13/24 12:34 Respiratory Rate 18 04/13/24 12:34 Blood Pressure 141/87 H 04/13/24 12:34 Pulse Oximetry 100 04/13/24 12:34 Oxygen Delivery Room Air 04/13/24 12:34 Temperature 36.7 C 04/13/24 12:34 Pulse Rate 77 04/13/24 12:34 Respiratory Rate 18 04/13/24 12:34 Blood Pressure 141/87 H 04/13/24 12:34 Pulse Oximetry 100 04/13/24 12:34 Oxygen Delivery Room Air 04/13/24 12:34 reviewed MDM - Extremity Injury (Lower) MDM Narrative Medical decision making narrative: x-ray of left ankle shows age-indeterminate avulsion fracture. Patient has no bony tenderness. This is most likely an old fracture. Did offer to OCL patient and follow-up with Orthopedics but he prefers to follow-up his primary care physician. Patient did not want any splint placed. Please be advised this is a medical document. It is intended for [id number] communication. It is written in medical language and may contain unfamiliar abbreviations or verbiage. Medical documents are intended to carry relevant information, facts as evident, and the clinical opinion of the practitioner at the time of the encounter. This report may have been done utilizing a voice recognition system. Attempts have been made to correct errors. However, there may be uncorrected grammatical, spelling, and recognition errors present. The file time of this note does not necessarily represent the time of service. Imaging Data My impression: agree with radiologist Radiologist's impression: XR ankle LT min 3V 04/13/2024 12:54 Indication: Lateral ankle swelling Procedure: 4 views left ankle Comparison: 10/20/2014 Findings: There is an avulsion fracture distal tip of the fibula. No significant soft tissue abnormality. Ankle mortise otherwise intact. Talar dome is unremarkable. 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 Impression: 1: Age-indeterminate avulsion fracture distal tip of the fibula. Correlate for point tenderness. Discharge Plan Discharge Clinical Impression: Left ankle sprain Patient Disposition: Home, Self-Care Condition: Stable Instructions: Ankle Sprain (ED) Additional Instructions: the x-ray of your left ankle shows an age indeterminate avulsion fracture. This could be a new fracture or possibly the old fracture from 10 years ago when you fractured her ankle. You have tenderness to your ligaments but no bony tenderness, is more concerning that your injury is a sprain. Follow-up with your primary care physician to compare new x-ray to your old x-rays. take Tylenol or ibuprofen every 6-8 hours as needed for pain. Elevate when at rest. Apply ice as needed for pain. Avoid activities that increase pain to left ankle. Patient Language: Bermudian Prescriptions: No Action indomethacin 25 mg capsule 50 mg PO BID allopurinol 300 mg tablet 300 mg PO DAILY diclofenac potassium 50 mg tablet 50 mg PO TID 10 Days Qty: 30 0RF methylprednisolone [Medrol (Bala)] 4 mg tablets,dose pack See Rx Instructions PO .COMPLEX Qty: 21 0RF Rx Instructions: orally per package directions hydrocodone-acetaminophen 5-325 mg tablet 1 tablet PO Q8H PRN (Reason: pain) Qty: 10 0RF carvedilol 12.5 mg tablet 12.5 mg PO DAILY zolpidem 10 mg tablet 10 mg HS Follow-up/Referrals: Radha,Jatinder Wolfe MD [Primary Care Provider] - Simone Amaya MD [Physician] - (follow up with provider education specialist for further evaluation of your injury) Time of Disposition: 13:10
== END 2024-04-13 13:13 | disposition home or self-care (01) ==
PROVIDERS: Emergency Provider Nurse Practitioner Family; PCP Family Medicine Sports Medicine
DX: S93.402A Sprain of unspecified ligament of left ankle, initial encounter (principal); X50.9XXA Other and unspecified overexertion or strenuous movements or postures, initial encounter; Y93.01 Activity, walking, marching and hiking; I10 Essential (primary) hypertension; M19.90 Unspecified osteoarthritis, unspecified site; M10.9 Gout, unspecified
CPT/HCPCS: 73610; 99213; G0463